=== PATIENT | male | born 1960 | race African-American/Black ===

== ENCOUNTER 2016-12-11 22:26 | Emergency (ER) | payer MEDICARE, OTHER ==
[~2016-12-11] VITALS: Ht 188 cm; Wt 137.0 kg
[~2016-12-11 22:26] MED LIST: ACET325T9 PO; AMLO10TA4 PO; AMMO226L TP; ATOR10TA60 PO; BISA5TAB4 PO; CEFP200T PO; CLOT15CR53 TP; DESO15CR11 TP; DOCU100C28 PO; ESCITALOPRAM OX10 MG PO; FERR-26 PO; FLUT9.9S NS; FOSI20TA PO; FOSI40TA PO; FURO-68 PO; HYDR-2758 PO; IBUP200T77 PO; ILOP12TA2 PO; MAGN400O7 PO; MELO15TA23 PO; METF850T2 PO; OMEP20TA8 PO; PHEN177L2 PO; POLY17PO3 PO; PRED-220 PO; PREG150C PO; RISP1TAB3 PO; TAMS0.4C2 PO; TRIH2TAB3 PO; VENTOLIN HFA18 GM INH
--- NOTE | 2016-12-11 22:45 | PHYS DOC ---
Past Medical History Past Medical History: Asthma, Diabetes-Type II, Hypertension, Schizophrenia Additional Past Medical Histor: sarcoidoisis Past Surgical History: No Surgical History Additional Past Surgical Histo: hernia Alcohol Use: None Drug Use: None Adult General Chief Complaint Chief Complaint: MECHANICAL FALL HPI HPI Patient is a 55 year old male who presents by EMS from nursing facility for left hip pain after a fall. He was trying to transition to his wheelchair in the restroom, when he had a fall. He notes chronic intermittent weakness that he usually calls for assistance. States he did not call for assistance today even though he was feeling weak. His weakness feels exactly like prior episodes of weakness and he is not concerned about this. Nursing facility examined him, noting left hip pain and poor range of motion due to pain. He denies hip pain at this time. He denies headache, head injury, neck pain, chest pain, dyspnea, abdominal pain, back pain, numbness, tingling, vision changes, dizziness. States he has otherwise been eating and drinking normal. Review of Systems Review of Systems Constitutional: Denies fever or chills [] Eyes: Denies change in visual acuity, redness, or eye pain [] HENT: Denies nasal congestion or sore throat [] Respiratory: Denies cough or shortness of breath [] Cardiovascular: No additional information not addressed in HPI [] GI: Denies abdominal pain, nausea, vomiting, bloody stools or diarrhea [] : Denies dysuria or hematuria [] Musculoskeletal: Denies back pain [] Integument: Denies rash or skin lesions [] Neurologic: Denies headache, focal weakness or sensory changes [] Endocrine: Denies polyuria or polydipsia [] Allergies Allergies Allergies Coded Allergies Type Severity Reaction Last Updated Verified No Known Drug Allergies 06/20/14 No Physical Exam Physical Exam Constitutional: Well developed, well nourished, no acute distress, non-toxic appearance. [] HENT: Normocephalic, atraumatic, bilateral external ears normal, oropharynx moist, nose normal. [] Eyes: PERRLA, EOMI. [] Neck: Normal range of motion, no tenderness, supple, no stridor. [] Cardiovascular:Heart rate regular rhythm [] Lungs & Thorax: Bilateral breath sounds clear to auscultation [] Abdomen: Bowel sounds normal, soft, no tenderness. [] Skin: Warm, dry, no erythema, no rash. [] Back: No tenderness, no CVA tenderness. [] Extremities: No tenderness, ROM intact, no edema. [] Neurologic: Alert and oriented X 3, normal motor function, normal sensory function, no focal deficits noted. [] Psychologic: Affect normal, judgement normal, mood normal. [] Current Patient Data Vital Signs Vital Signs Date Time Temp Pulse Resp B/P (MAP) Pulse Ox O2 Delivery O2 Flow Rate FiO2 12/11/16 22:33 98.6 90 18 107/60 (76) 99 Room Air 98.6 Radiology/Procedures Radiology/Procedures X-ray left hip and pelvis as interpreted by me was no acute fracture or dislocation Course & Med Decision Making Course & Med Decision Making Pertinent Labs and Imaging studies reviewed. (See chart for details) Imaging is unremarkable. He would like to be discharged back to the nursing facility for further care. Return precautions given. He understands and agrees with plan. He was transferred via EMS. Dragon Disclaimer Dragon Disclaimer This electronic medical record was generated, in whole or in part, using a voice recognition dictation system. Departure Departure Impression: Primary Impression: Left hip pain Disposition: HOME, SELF-CARE (nursing facility) Condition: STABLE Referrals: ISAEL JOHNSON MD (PCP) Patient Instructions: Musculoskeletal Pain Additional Instructions: Take Tylenol or ibuprofen as needed for pain. Follow-up with your primary care doctor. Return for any concerns. Ace HEALY MD Dec 11, 2016 22:45
[2016-12-12] VITALS: BP 96/72
--- NOTE | 2016-12-12 07:21 | RAD ---
Indication: Fall with left hip pain. Time of exam 2323 hours. Femoral acetabular alignment appears normal. The femoral head and neck appear intact. No fractures are seen. The joint space is well-maintained. Impression: No acute bony abnormality is detected.
== END 2016-12-12 00:45 | disposition home or self-care (01) ==
LOC: ER 22:26
DX: M25.552 Pain in left hip (principal); R53.1 Weakness; E11.9 Type 2 diabetes mellitus without complications; F20.9 Schizophrenia, unspecified; I10 Essential (primary) hypertension; J45.909 Unspecified asthma, uncomplicated; D86.9 Sarcoidosis, unspecified; W05.0XXA Fall from non-moving wheelchair, initial encounter; Y93.89 Activity, other specified; Y92.89 Other specified places as the place of occurrence of the external cause; Y99.8 Other external cause status
CPT/HCPCS: 73502; 99284